=== PATIENT | female | born 1980 | race Caucasian/White ===

== ENCOUNTER 2024-06-08 16:19 | Emergency (ER) | payer OTHER, SELFPAY ==
[2024-06-08 16:33] VITALS: BP 137/93
--- NOTE | 2024-06-08 17:45 | ED.GENMED ---
History of Present Illness
General
Chief Complaint: Eye Problems
Source: patient
Exam Limitations: none
Time Seen by Provider: 06/08/24 17:40
History of Present Illness
History of Present Illness:
See MDM
Past History
Past History
ED Past Medical History: None
ED Past Surgical History: Gynecological
Social History
Tobacco: Smoker
Alcohol: Other
Living: with family
Employment: Employed
Phy Exam
Physical Exam
Physical Exam:
See MDM
Course
Orders/Labs/Results
Orders:
Orders
06/08/24 17:46
Purified Water Eye Wash [Dacriose Eye Wash Solution] 120 ml .ROUTE .STK-MED ONE
06/08/24 18:00
Azithromycin [Zithromax] 500 mg PO NOW STA
Dexamethasone Pf [Decadron] 10 mg PO NOW STA
Vital Signs
Initial and Last Documented VS:
Initial Vital Signs
Temp Pulse Resp BP Pulse Ox
97.9 F 91 20 137/93 98
06/08/24 16:33 06/08/24 16:33 06/08/24 16:33 06/08/24 16:33 06/08/24 16:33
Last Documented Vital Signs
Temp Pulse Resp BP Pulse Ox
97.9 F 91 20 137/93 98
06/08/24 16:33 06/08/24 16:33 06/08/24 16:33 06/08/24 16:33 06/08/24 16:33
MDM/Problems Addressed
Differential Diagnosis Includes:
HPI and MDM Narrative:
43-year-old female presenting with left eye irritation. She went to her PCP. There is concern that could be a foreign body so she was sent to the emergency department for further evaluation. Patient states there is no change in her visual acuity.
Patient also stating that she feels like she has another sinus infection
Physical exam
General: Well appearing and non-toxic
HEENT: protecting airway. No evidence of corneal abrasion foreign body in left eye. No fluorescein uptake. Negative Shmuel sign. Left upper eyelid inverted without evidence of foreign body. Mild nasal congestion
Neck: appears supple
CV: No evidence of cyanosis
Resp: No accessory muscle use
Abd: Non-distended
Extremities: No deformities
Neuro: alert
Psych: Normal affect
Skin: Intact
Problems Addressed including Acute and Chronic Conditions affecting care:
1. Left eye irritation
Acuity: acute
Prognosis: stable
Details: There is no evidence of corneal foreign body. There is questionable abrasion on the sclera. Eyelid inverted without evidence of abrasion or foreign body. Discussed follow-up with her eye doctor
2. Sinusitis
Acuity: acute
Prognosis: stable
Details: Will start steroids and azithromycin
Differential Diagnosis (but not limited to): Corneal abrasion, foreign body, sinusitis
Testing considered: Visual acuity but she is denying any visual changes currently
Drug therapy (if applicable): OTC meds, please see d/c instruction regarding Rx drugs
Amount and/or Complexity of Data Reviewed
Clinical info obtained from: Patient
External data reviewed: N/A
Labs I independently reviewed (but not limited to): N/A
Radiology: N/A
Pulse Ox: not hypoxic
EKG independently reviewed: N/A
Hydraulic Billet Maker: N/A
Critical Care: N/A
Risk of Complication:
Social Determinants of health: Good social support
Discussed with other providers: N/A
Escalation of Care includes Admit/Obs: After being observed in the Emergency Department, pt stable for discharge.
Occasional wrong word or 'sound a like' substitutions may have occurred due to the inherent limitations of voice recognition software. Read the chart carefully and recognize, using context, where substitutions have occurred.
*Critical Care Note
Total Time (30-74mins, 75-104mins- exclusive of procedures): Not Applicable
ED Attending Note
-
Portions of this chart may have been created with voice recognition software.� Occasional wrong word or��sound alike� substitutions may have occurred due to the inherent limitations of voice recognition software.
Discharge Plan
Departure
Patient Disposition: Home (Routine Discharge)
Date of Disposition: 06/08/24
Time of Disposition: 18:01
Patient with high blood pressure during this ER visit?: No
Discharge Problem:
Sinusitis, Eye irritation
Prescriptions:
New
azithromycin [Zithromax] 250 mg tablet
250 mg PO DAILY Qty: 4 0RF
methylprednisolone [Medrol (Clyde)] 4 mg tablets,dose pack
See Rx Instructions .ROUTE .COMPLEX Qty: 21 0RF
Rx Instructions:
orally per package directions
No Action
metformin 500 MG tablet
500 mg PO BID
Seasonale
1 tab PO DAILY
Probiotic Plus & Cranberry Cap
2 tab PO DAILY
colchicine 0.6 MG tablet
0.4 mg PO BID Qty: 60 1RF
ibuprofen 600 MG tablet
600 mg PO Q8 Qty: 90 0RF
nitrofurantoin macrocrystal 50 MG capsule
100 mg PO BID Qty: 0 0RF
Rx Instructions:
take for amount of time as prescribed by your PCP
Activity Restrictions/Additional Instructions:
Please return for any worsening symptoms.
You may return at any time if you have further concerns.
Please follow up with your doctor at the first available appointment, preferably this week.
Please call your eye doctor first thing tomorrow morning for expedited follow-up.
Thank you for choosing [facility].
Interventions
Interventions:
*Risk Screen - Suicide Last Done: 06/08/24 16:33
*General Assessment Last Done: 06/08/24 16:33
*Neglect/Abuse Screening Last Done: 06/08/24 16:33
Discharge Date and Time
Print Language: CITIZ[place]
[2024-06-08] MEDS: DECADRON 10 MG PO (18:12)
[2024-06-08] MEDS: ZITHROMAX 500 MG PO (18:12)
== END 2024-06-08 18:20 | disposition home or self-care (01) ==
LOC: EMR 16:19
PROVIDERS: EMERGENCY PHYSICIAN Student in an Organized Health Care Education/Training Program; FAMILY PHYSICIAN Nurse Practitioner Family
DX: J32.9 Chronic sinusitis, unspecified (principal); H57.12 Ocular pain, left eye
CPT/HCPCS: 99282

== ENCOUNTER → 2024-12-05 13:38 | Outpatient (REF) | payer OTHER, SELFPAY | LOC: HWWDC 13:38 | PROVIDERS: ATTENDING PHYSICIAN Nurse Practitioner Family | DX: Z12.31 Encounter for screening mammogram for malignant neoplasm of breast (principal); M54.2 Cervicalgia | CPT/HCPCS: 72050; 77063; 77067 ==

== ENCOUNTER → 2025-08-27 08:35 | Outpatient (REF) | payer OTHER, SELFPAY | LOC: HWRAD 08:35 | PROVIDERS: ATTENDING PHYSICIAN Nurse Practitioner Family | DX: R05.9 Cough, unspecified (principal) | CPT/HCPCS: 71046 ==